=== PATIENT | male | born 1950 | race Caucasian/White ===

== ENCOUNTER 2024-06-17 09:34 | Outpatient (AMB) | payer OTHER, SELFPAY ==
--- NOTE | 2024-06-17 09:47 | A.OFFPC_ITS ---
Vital Signs 06/17/24 09:55 Height 5 ft 8.82 in Weight 194 lb 4 oz BMI 28.8 BP 118/66 Blood Pressure Location Lt brachial Position Sitting Pulse 67 Pulse Source Pulse Oximeter Pulse Oximetry (%) 97 Oxygen Delivery Method Room Air Intake Visit Reasons: Establish Care Intake Note: New patient visit. Pulled left shoulder in February Residential Program Coordinator Required: No Allergies No Known Allergies Allergy (Verified 06/17/24 09:47) Tobacco use date assessed: 06/17/24 Fall risk assessment: No Falls in past year Last assessed Fall Risk: 06/17/24 Dental Screening Dental Screen Date: 06/17/24 Did you have a dental visit in the last 12 months?: Yes Did you have a dental problem in the last 6 months where you did not have access to dental care?: No Was dental information given to patient?: Patient has dentist HPI HPI Comments History of Present Illness Details The patient is a 73 year old male with a past medical history of hyperlipidemia, arthritis, PTSD, presenting for follow up CV: on simvastatin 40mg daily, ASA 81mg daily. Denies chest pain, dizziness, vision changes. Previously was seeing Dr Dickey. Sees Dr Bates for optho. Susceptible to glaucoma Pulled left shoulder picking his up who has mobility issues. Right foot. Chronic throat clearing. Preventive Due for colonoscopy 11/09/2027 ROS CONSTITUTIONAL: Denies weight loss, fever and chills. HEENT: Denies changes in vision and hearing. RESPIRATORY: Denies SOB and cough. CV: Denies palpitations and CP GI: Denies abdominal pain, nausea, vomiting and diarrhea. : Denies dysuria and urinary frequency. MSK: Denies new myalgia and joint pain. SKIN: Denies rash and pruritus. NEUROLOGICAL: Denies headache PSYCHIATRIC: Denies recent changes in mood. PHYSICAL EXAM: GENERAL: Alert and oriented x 3. NAD EYES: EOMI. Anicteric. HENT: Moist mucous membranes. No scleral icterus. No cervical lymphadenopathy. LUNGS: Clear to auscultation bilaterally. CARDIOVASCULAR: Regular rate and rhythm. No murmur. No JVD. ABDOMEN: Soft, non-tender +bs EXTREMITIES: No edema. Non-tender. SKIN: No rashes or lesions. Warm. NEUROLOGIC: No focal neurological deficits. CN II-XII grossly intact PSYCHIATRIC: Cooperative. Appropriate mood and affect COUNTS INCLUDE 234 BEDS AT THE [facility] Medical History (Updated 12/09/24 @ 02:29 by Negin Raygoza MD) Deviated septum Surgical History (Updated 06/17/24 @ 09:59 by Pushpa Long CMA) H/O colonoscopy H/O vasectomy Family History (Updated 06/17/24 @ 10:02 by Pushpa Long CMA) Mother Rectal cancer Father Cancer of colon Diabetes Stroke Maternal Grandmother Diabetes Arthritis CHF (congestive heart failure) Maternal Grandfather Heart attack Other Alcoholism Substance abuse Social History (Updated 06/17/24 @ 10:02 by Pushpa Long CMA) Housing: House Alcohol intake: current Patient Tobacco Use Status: Never used Tobacco e-Cigarette/Vaping Use: Never Used Second Hand Smoke Exposure: No Substance Use Type: Former Substance User and Marijuana service: Yes Current occupational status: retired Cognitive needs: No Hearing needs: No Vision needs: No Questionnaire PHQ-9 Over the last 2 weeks, how often have you been bothered by any of the following problems? 1. Little interest or pleasure in doing things: not at all 2. Feeling down, depressed, or hopeless: not at all 3. Trouble falling or staying asleep, or sleeping too much: not at all 4. Feeling tired or having little energy: not at all 5. Poor appetite or overeating: not at all 6. Feeling bad about yourself - or that you are a failure or have let yourself or your family down: not at all 7. Trouble concentrating on things, such as reading the newspaper or watching television: not at all 8. Moving or speaking so slowly that other people could have noticed. Or the opposite - being so fidgety or restless that you have been moving around a lot more than usual: not at all 9. Thoughts that you would be better off or of hurting yourself in some way: not at all Total score: 0 Depression Screening Interpretation: Negative Depression Screening Done: Yes 27561 - PHQ-9 Billing: Yes Source: Developed by Drs. Charlie Edwards, Elvia Melendrez, Ortega Nunez and colleagues, with an educational troy from [employer]. Thrive Questionnaire Date Thrive assessed: 06/10/24 I am a: Patient What is your living situation today?: I have a steady place to live Within the past 12 months, did the food you bought not last and you didn't have the money to get more?: Never true Within the past 12 months, did you worry whether your food would run out before you got money to buy more?: Never true Do you have trouble paying for medicines?: No Do you have trouble getting transportation to medical appointments?: No Do you have trouble paying your heating and electricity bill?: No Do you have trouble taking care of your child, family member or friend?: No Do you have trouble with day-to-day activities such as bathing, preparing meals, shopping, managing finances, etc.?: No Are you currently unemployed and looking for a job?: No Are you interested in more education?: No Please select the resources that you would like help with: None Currently or been in a relationship where the following occur: No concerns reported THRIVE Score: 0 AUDIT C Alcohol Use Questionnaire (AUDIT-C) 1. How often do you have a drink containing alcohol?: 2-4 times a month 2. How many drinks containing alcohol do you have on a typical day when you are drinking?: 3 or 4 3. How often do you have six or more drinks on one occasion?: Never Total Score: 3 JOSE A-7 AMB Questionnaire JOSE A-7 Date JOSE A - 7 assessed: 06/17/24 Feeling nervous, anxious, or on edge: 0 = Not at all Not being able to stop or control worryin = Not at all Worrying too much about different things: 0 = Not at all Trouble relaxin = Not at all Being so restless that it is hard to sit still: 0 = Not at all Becoming easily annoyed or irritable: 0 = Not at all Feeling afraid as if something awful might happen: 0 = Not at all Total JOSE A-7 score (0-4 normal; 5-9 mild; 10-14 moderate; 15-21 severe): 0 Source: Developed by Drs. Charlie Edwards, Elvia Melendrez, Ortega Nunez and colleagues, with an educational troy from [employer]. JOSE A-7 Assessment Billing JOSE A-7 Assessment Tool: JOSE A-7 Assessment 39070 Physical exam (Primary Care) Vital Signs: Last Vital Signs Pulse 67 06/17/24 09:55 BP 118/66 06/17/24 09:55 Pulse Ox 97 12/02/24 09:55 Oxygen Delivery Method Room Air 06/17/24 09:55 BMI result Body Mass Index 28.8 Tobacco/Smoking Status: Tobacco use Status Tobacco use date assessed 06/17/24 06/17/24 10:03 Patient Tobacco Use Status Never used Tobacco 06/17/24 10:03 e-Cigarette/Vaping Use Never Used 06/17/24 10:03 PHQ-9: PHQ-9 Score PHQ-9: Total score 0 06/17/24 10:15 Depression Screening Interpretation: Negative Thrive Assessment: Date of Thrive Assessment Date Thrive assessed 06/10/24 06/17/24 10:03 Currently or been in a relationship where the following occur: No concerns reported Coding Level of Care Code Est Pt Level 4 (74867) Complex EM visit Add On G2211 Diagnoses Mixed hyperlipidemia E78.2 Hyperlipidemia type: mixed hyperlipidemia Other chest pain R07.89 Chest pain type: other chest pain Additional Codes JOSE A-7 Assessment Billing - JOSE A-7 Assessment Tool: JOSE A-7 Assessment 91888 ([id number]) PHQ-9 - 70809 - PHQ-9 Billing: Yes ([id number]) Assessment & Plan Assessment & Plan (1) Hyperlipidemia: Code(s): E78.5 - Hyperlipidemia, unspecified Category: Medical Qualifiers: Hyperlipidemia type: mixed hyperlipidemia Qualified Code(s): E78.2 - Mixed hyperlipidemia Plan: stable on statin therapy check labs (2) Chest pain: Code(s): R07.9 - Chest pain, unspecified Category: Medical Qualifiers: Chest pain type: other chest pain Qualified Code(s): R07.89 - Other chest pain Plan: Infrequent episodes Non exertional EKG performed Trial omeprazole-also having chronic throat clearing. If chest pain recurs then we will consider further cardiac testing Orders: Orders Complete Blood Count Auto Diff 06/17/24 E78.5 - Hyperlipidemia, unspecified, Z12.5 - Encounter for screening for malignant neoplasm of prostate, Z13.0 - Encounter for screening for diseases of the blood and blood-forming organs and certain disorders involving the immune mechanism Comprehensive Met. Panel 06/17/24 E78.5 - Hyperlipidemia, unspecified, Z12.5 - Encounter for screening for malignant neoplasm of prostate, Z13.0 - Encounter for screening for diseases of the blood and blood-forming organs and certain disorders involving the immune mechanism Lipid Panel 06/17/24 E78.5 - Hyperlipidemia, unspecified, Z12.5 - Encounter for screening for malignant neoplasm of prostate, Z13.0 - Encounter for screening for diseases of the blood and blood-forming organs and certain disorders involving the immune mechanism Prostate Specific Antigen 06/17/24 E78.5 - Hyperlipidemia, unspecified, Z12.5 - Encounter for screening for malignant neoplasm of prostate, Z13.0 - Encounter for screening for diseases of the blood and blood-forming organs and certain disorders involving the immune mechanism AMB EKG-In Office 06/17/24 R07.9 - Chest pain, unspecified Referrals Orthopedics Referral M25.512 - Pain in left shoulder Medications: New simvastatin 40 mg PO BEDTIME 90 tabs 3RF omeprazole 20 mg PO DAILY 30 caps 0RF
[2024-06-17 09:55] VITALS: BP 118/66; PULSE 67; O2SAT 97; BMI 28.8
== END 2024-06-17 10:53 | disposition home or self-care (01) ==
PROVIDERS: PCP Internal Medicine; Visit Provider Internal Medicine
DX: E78.2 Mixed hyperlipidemia (principal); R07.89 Other chest pain

== ENCOUNTER → 2024-06-17 09:34 | Outpatient (BNVA) | payer OTHER, SELFPAY | PROVIDERS: PCP Internal Medicine; Visit Provider Internal Medicine | DX: E78.2 Mixed hyperlipidemia (principal); R07.89 Other chest pain; Z79.82 Long term (current) use of aspirin; Z79.899 Other long term (current) drug therapy | CPT/HCPCS: 96127; 99212 ==

== ENCOUNTER 2024-06-17 11:19 | Outpatient (REF) | payer OTHER, SELFPAY ==
[2024-06-17 14:27] LABS: MANUAL DIFF FLAG NO
[2024-06-17 14:35] LABS: Basophils Percent Auto 0.5 % (0-2); Eosinophils Absolute Auto 0.1 X10*3/uL (0.0-0.4); Eosinophils Percent Auto 1.4 % (0-4); Hematocrit 42.2 % (42.0-52.0); Hemoglobin 14.6 g/dl (14.0-18.0); Imm Gran Abs Auto 0.02 X10*3/uL (0.00-0.03); Imm Gran Pct Auto 0.3 % (0.0-0.4); Lymphocytes Absolute Auto 1.8 X10*3/uL (1.2-4.9); Lymphocytes Percent Auto 27.4 % (20-40); Mean Corpuscular HGB Conc 34.6 g/dl (31.0-36.0); Mean Corpuscular Hemoglobin 32.6 pg (27.0-33.0); Mean Corpuscular Volume 94.2 fL (80.0-98.0); Mean Platelet Volume 11.7 fL (9.4-12.4); Monocytes Absolute Auto 0.6 X10*3/uL (0.1-1.2); Monocytes Percent Auto 9.1 % (2-11); Neutrophils Percent Auto 61.3 % (45-73); Platelet Count 207 X10*3/uL (160-400); Red Blood Count 4.48 X10*6/uL (4.60-5.80); Red Cell Distribution Width 12.7 % (11.0-16.0); White Blood Count 6.6 X10*3/uL (4.8-10.8)
[2024-06-17 15:49] LABS: Alanine Aminotransferase 22 U/L (0-40); Alkaline Phosphatase 64 U/L (39-117); Anion Gap 12 (12-20); Aspartate Amino Transferase 40 U/L (5-37); Bilirubin Total 0.6 mg/dL (0.0-1.0); Blood Urea Nitrogen 13 mg/dL (9-16); Calcium 9.5 mg/dL (8.4-10.2); Carbon Dioxide 25 mmol/L (22-29); Chloride 108 mmol/L (96-108); Cholesterol 177 mg/dL (<200); Estimated Glomerular Filt Rate > 60; Glucose Random 109 mg/dL (60-115); HDL Cholesterol 46 mg/dL (>40); LDL Cholesterol Calculated 100 mg/dL (<100); Potassium 4.4 mmol/L (3.3-5.1); Sodium 141 mmol/L (135-145); Triglycerides 158 mg/dL (<150)
[2024-06-17 16:10] LABS: Prostate Specific Antigen 0.71 ng/mL (<0.05-4.0)
== END 2024-06-17 11:20 | disposition home or self-care (01) ==
LOC: HO.WFDLDS 11:19
PROVIDERS: Visit Provider Internal Medicine
DX: E78.5 Hyperlipidemia, unspecified (principal); Z12.5 Encounter for screening for malignant neoplasm of prostate; Z13.0 Encounter for screening for diseases of the blood and blood-forming organs and certain disorders involving the immune mechanism
CPT/HCPCS: 36415; 80053; 80061; 84153; 85025

== ENCOUNTER 2024-07-23 07:42 | Outpatient (AMB) | payer OTHER, SELFPAY ==
--- NOTE | 2024-07-23 07:52 | MHC.OFFVIS ---
Vital Signs 07/23/24 07:53 Height 5 ft 8.82 in Weight 194 lb 4 oz BMI 28.8 Intake Visit Reasons: Left shoulder pain and weakness Intake Note: Nirmal is a 73 year old male who presents with complaints of progressively worsening left shoulder pain and weakness. The patient describes his pain as sharp and severe in nature. He did injure his left shoulder approximately 6 months ago while lifting his elderly who had fallen to the ground. He denies any weakness or pain prior to that injury. The patient states that when he lifted his he felt ?a pop? in his left shoulder. He has been doing physical therapy exercises which aggravated his pain. He has also tried Tylenol and anti-inflammatory medicines which gave him minimal relief. He has failed the last 6 weeks of conservative treatment which has included physical therapy exercises, topical creams, Tylenol and anti-inflammatory medicines. He denies any numbness or tingling in either of his upper extremities. Deportation Examiner Required: No Allergies No Known Allergies Allergy (Verified 07/23/24 07:53) Medication List - Last Reconciled 07/23/24 by Jarret Kelsey MD antiarthritic combination no.2 (glucosamine-chondroitin) mg PO ascorbate calcium (vitamin C) 500 mg PO DAILY aspirin 81 mg PO DAILY cholecalciferol (vitamin D3) 50 mcg PO DAILY [coqu10 100 .] multivitamin 1 tab PO DAILY omega 1-rnr-icp-fish oil 300-1,000 mg (Fish Oil) 1 cap PO DAILY omeprazole 20 mg PO DAILY simvastatin 40 mg PO BEDTIME [facility] Medical History (Updated 07/23/24 @ 08:28 by Jarret Kelsey MD) Deviated septum Surgical History (Updated 06/17/24 @ 09:59 by Pushpa Long CMA) H/O colonoscopy H/O vasectomy Family History (Updated 06/17/24 @ 10:02 by Pushpa Long CMA) Mother Rectal cancer Father Cancer of colon Diabetes Stroke Maternal Grandmother Diabetes Arthritis CHF (congestive heart failure) Maternal Grandfather Heart attack Other Alcoholism Substance abuse Social History (Updated 06/17/24 @ 10:02 by Pushpa Long CMA) Housing: House Alcohol intake: current Patient Tobacco Use Status: Never used Tobacco e-Cigarette/Vaping Use: Never Used Second Hand Smoke Exposure: No Substance Use Type: Former Substance User and Marijuana service: Yes Current occupational status: retired Cognitive needs: No Hearing needs: No Vision needs: No Physical Exam Vital Signs: BMI result Body Mass Index 28.8 Const Other: Well-nourished well-developed very friendly male awake alert and oriented x3 in no acute distress Extrem Other: Bilateral upper extremity examination shows good capillary refill, no skin lesions noted, normal sensation light touch Left shoulder examination shows decreased active range of motion but almost full passive range of motion when compared to his right shoulder, 4/5 strength with supraspinatus testing, positive impingement signs, no instability Results Reviewed Results Reviewed: X-rays of the patient's left shoulder taken today show severe acromioclavicular joint arthritis, a type 2 acromion, no acute bony abnormalities Assessment & Plan Assessment & Plan (1) Rotator cuff insufficiency of left shoulder: Code(s): M25.312 - Other instability, left shoulder Category: Medical Plan Mr. Cardona presents with progressively worsening left shoulder pain and weakness most likely due to a full-thickness rotator cuff tear. Thus, I will send the patient for an MRI of his left for further evaluation. I will see him back once the MRI is completed to discuss the findings and treatment options. Feel free to call me at any time should questions regarding his orthopedic management arise. Thank you very much for asking me to see this very friendly gentleman. I spent 21 minutes in reviewing the patient's records and imaging studies, seeing the patient and documenting in the medical record. Orders: Orders XR shoulder LT min 2V Today M25.512 - Pain in left shoulder MR shoulder LT wo con Today M25.312 - Other instability, left shoulder Coding Level of Care Code New Pt Level 3 (42863) Complex EM visit Add On G2211 Diagnoses Rotator cuff insufficiency of left shoulder M25.312
[2024-07-23 07:53] VITALS: BMI 28.8
== END 2024-07-23 08:22 | disposition home or self-care (01) ==
PROVIDERS: PCP Internal Medicine; Visit Provider Orthopaedic Surgery
DX: M25.312 Other instability, left shoulder (principal)
CPT/HCPCS: 99203

== ENCOUNTER → 2024-07-23 07:45 | Outpatient (BNV) | payer OTHER, SELFPAY | PROVIDERS: Visit Provider Radiology Diagnostic Radiology | DX: M25.512 Pain in left shoulder (principal) | CPT/HCPCS: 73030 ==

== ENCOUNTER 2024-07-23 09:31 | Outpatient (REF) | payer OTHER, SELFPAY ==
--- NOTE | ~2024-07-23 | XR_ITS ---
EXAMINATION: XR SHOULDER 2 OR MORE VIEWS LEFT HISTORY: M25.512 - Pain in left shoulder COMPARISON: There are no prior studies available for comparison. FINDINGS: Two views of the left shoulder are submitted. Osseous mineralization is normal. There is no fracture or dislocation. The glenohumeral joint is maintained. There is mild narrowing of the AC joint. The soft tissues are unremarkable. XR/XR shoulder LT min 2V IMPRESSION: Mild narrowing of the AC joint. Electronically signed by: Charlie Weiner MD 07/25/2024 12:58 PM EST DILLAN
--- OUTSIDE RECORDS SUMMARY | 2024-07-24 09:36 | XMS_ITS | Continuity of Care Document ---
Author Name [facility] Organization [facility] Care Team Providers Care White Shoe Ragger Name Role Phone [facility] Unavailable Unavailable Immunizations Combined list of available immunizations from the Department of Defense and Veterans Affairs facilities. Immunization Series Date Given Administered By Site Reaction Lot Number CVX Code Drug Production Solderer Status Comments Source INFLUENZA, INJECTABLE, QUADRIVALENT, PRESERVATIVE FREE 2018 150 complet ed Partner: [facility]. Administe red by: [facility] Clinician (NPI=Not Provided) . Partner 4 Lot#: [id number] Mfr: GlaxCubic Telecomit hKline [place] CNTRL WSTRN [facility]
== END 2024-07-23 09:32 | disposition home or self-care (01) ==
LOC: HO.HOSX 09:31
PROVIDERS: Visit Provider Orthopaedic Surgery
DX: M19.012 Primary osteoarthritis, left shoulder (principal); M25.512 Pain in left shoulder; M25.312 Other instability, left shoulder
CPT/HCPCS: 73030; 99202

== ENCOUNTER 2024-08-12 08:32 | Outpatient (REF) | payer OTHER, SELFPAY ==
--- NOTE | ~2024-08-12 | MR_ITS ---
CLINICAL HISTORY: M25.312 - Other instability, left shoulder Exam: MRI of the left shoulder without intravenous contrast. Comparison: Radiographs July 23, 2024. Findings: Extensive tendinopathy of the distal 2 cm of the supraspinatus tendon is identified. There is a full-thickness tear of the distal supraspinatus tendon with a fluid gap measuring 12 mm medial to lateral x 15 mm anterior to posterior. No tendon retraction or muscle atrophy. This tear extends into the anterior fibers of the distal infraspinatus tendon. Teres minor and subscapularis tendons are intact. Moderate to severe glenohumeral joint DJD with joint space narrowing and osteophyte formation. There is degeneration of the superior labrum without a discrete labral tear. The tendon of the long head of the biceps is appropriately positioned within the bicipital groove. Type 2 acromion. Moderate to severe AC joint DJD with juxta-articular edema. Increased fluid within the subacromial/subdeltoid space due to the full-thickness rotator cuff tear. Impression: 1. Full-thickness supraspinatus tendon tear with severe supraspinatus tendinopathy. This tear extends into the anterior fibers of the distal infraspinatus tendon. 2. Glenohumeral joint and AC joint DJD. This document has been electronically signed by: Wood Villa MD on 08/12/2024 17:03:51
--- NOTE | ~2024-08-12 | XR_ITS ---
EXAMINATION: Pre-MRI orbits. CLINICAL INDICATION: Pre-MRI screening. History of metal left cheek. COMPARISON: None. FINDINGS: There is no radiopaque metallic foreign body seen in the orbits or the soft tissues on the visualized images. The paranasal sinuses and mastoid air cells are well-aerated. XR/XR pre mri screening IMPRESSION: No radiopaque foreign body seen in the orbits or on the visualized images. Electronically signed by: Bimal Shine MD 08/12/2024 09:19 AM EST
--- OUTSIDE RECORDS SUMMARY | 2024-08-12 12:45 | XMS_ITS | Continuity of Care Document ---
Author Name [facility] Organization [facility] Care Team Providers Care Real Estate Economist Name Role Phone [facility] Unavailable Unavailable Problems Combined list of problems from Department of Defense and Veterans Affairs facilities. It does not include entries that were removed or entered in error. Problem Status Onset Date Problem Type Date of Resolution Comments Source visit for: services physical care home Inactive Condition see hard copy DoD visit for: ears, nose, and throat exam Inactive Condition DoD routine examination Inactive Condition DoD Immunizations Combined list of available immunizations from the Department of Defense and Veterans Affairs facilities. Immunization Series Date Given Administered By Site Reaction Lot Number CVX Code Drug Spring Crater Status Comments Source INFLUENZA, INJECTABLE, QUADRIVALENT, PRESERVATIVE FREE 2018 150 complet ed Partner: [facility]. Administe red by: [facility] Clinician (NPI=Not Provided) . Partner 4 Lot#: [id number] Mfr: GlaxoSmit hKline [facility] Encounters Combined list of: 1) Encounters from Department of Veterans Affairs facilities going back up to thelast 18 months. 2) Encounters from the Department of Defense facilities going back up to 280 months. Location Location Details Encounter Type Encounter Number Reason For Visit Attending Provider ADM Date DC Date Status Disposition Source [facility] OUTPATIENT [id number] physica jimmy [facility] 02/01 [facility]) OUTPATIENT [id number] CAROLINA OLIVEIRA 02/01 Released w/o Limitations [facility] OUTPATIENT [id number] RET SAMEER CHANDLER 02/01 Released w/o Limitations [facility] OUTPATIENT [id number] retirem ent DAVID CartagenaEEP S 02/14 Released w/o Limitations [facility] Procedures Combined list of: 1) Procedures from Department of Veterans Affairs facilities going back up to thelast 18 months, not all VA non-surgical procedures are included; 2) All procedures from the Department of Defense facilities. Procedure Procedure Type Code Date Perfomer Comments [facility] SCREENING TEST, PURE TONE, AIR ONLY 5 [facility] ACOUSTIC REFLEX TESTING, THRESHOLD 5 [facility] OPHTHALMOLOGICAL SERVICES: MEDICAL EXAMINATION AND EVALUATION, WITH INITIATION OR CONTINUATION OF DIAGNOSTIC AND TREATMENT PROGRAM; INTERMEDIATE, ESTABLISHED PATIENT 5 [facility] Audiogram (Screening) Audiogram (Screening) 43039 5 SAMEER PATEL [facility] Comprehensive Audiometry Comprehensive Audiometry 28896 5 CAROLINA OLIVEIRA [facility] Tympanometry Tympanometry 32857 5 CAROLINA OLIVEIRA [facility] Acoustic Reflex Testing 5 [place] OLIVEIRA [facility] Social History Combined list of available smoking, tobacco, and other social history from Department of Defense and Veterans Affairs facilities. Social History Type Response Date Comment [facility] e This section is an empty social history section. [facility]
== END 2024-08-12 08:33 | disposition home or self-care (01) ==
LOC: HO.MRI 08:32
PROVIDERS: PCP Internal Medicine; Referring Provider Radiology Diagnostic Radiology; Visit Provider Orthopaedic Surgery
DX: M25.512 Pain in left shoulder (principal)
CPT/HCPCS: 73221

== ENCOUNTER → 2024-08-12 09:01 | Outpatient (BNV) | payer OTHER, SELFPAY | PROVIDERS: PCP Internal Medicine; Referring Provider Radiology Diagnostic Radiology; Visit Provider Radiology Diagnostic Radiology | DX: M75.102 Unspecified rotator cuff tear or rupture of left shoulder, not specified as traumatic (principal); M19.012 Primary osteoarthritis, left shoulder | CPT/HCPCS: 73221 ==

== ENCOUNTER 2024-09-11 07:55 | Outpatient (AMB) | payer OTHER, SELFPAY ==
--- OUTSIDE RECORDS SUMMARY | 2024-09-11 07:59 | XMS_ITS | Encounter Summary ---
Author Organization [facility] Address [address] [place] [address] Care Team Providers Care Motion Picture Photographer Name Role Phone Negin Franks MD Primary Care Provider [facility], Pcp Primary Care Provider Negin Hernandez MD Primary Care Provider Peter ruthefrord Encounter Details Date Type Department Care Team Description 11/21/2019 Local Telephone Operator Report Medical Records [address] [place] [address] Zac Gamez Social History Tobacco Use Types Packs/Day Years Used Date Smoking Tobacco: Never Smokeless Tobacco: Never Alcohol Use Standard Drinks/Week Comments Yes 1.7 (1 standard drink = 0.6 oz p ure alcohol) 2 beers per week Physical Activity Answer Date Recorded On average, how many days pe r week do you engage in moderate to strenuous exercise (like walking fast, running, jogging, dancing, swimming, biking, or other activities that cause a light or heavy sweat)? 4 days 04/06/2020 On average, how many minutes do you engage in exercise at this level? 60 min 04/06/2020 Stress Answer Date Recorded Do you feel stress - tense, restless, nervous, or anxious, or unable to sleep at night because your mind is troubled all the time - these days? Only a little 04/06/2020 Intimate Partner Violence Answer Date R ecorded Within the last year, have y ou been afraid of your partner or ex-partner? No 04/06/2020 Within the last year, have y ou been humiliated or emotionally abused in other ways by your partner or ex-partner? No Within the last year, have y ou been kicked, hit, slapped, or otherwise physically hurt by your partner or ex-partner? No 04/06/2020 Within the last year, have y ou been raped or forced to have any kind of sexual activity by your partner or ex-partner? No 04/06/2020 Sex Assigned at Date Recorded Not on file documented as of this encounter Plan of Treatment Not on file documented as of this encounter Visit Diagnoses Not on filedocumented in this encounter Care Teams Motion Picture Photographer Relationship Specialty Start Date End Date Negin Franks MD PCP - General Internal Medicine 05/15/15 10/25/20 [facility] Pcp PCP - General Internal Medicine 10/26/20 04/01/21 Negin Franks MD PCP - General Internal Medicine 04/02/21 documented as of this encounter
--- OUTSIDE RECORDS SUMMARY | 2024-09-11 07:59 | XMS_ITS | Encounter Summary ---
Author Organization [facility] Address [address] [place] [address] Care Team Providers Care Sales Support Coordinator Name Role Phone Yaya Hinds MD Primary Care Provider Negin Juares MD Primary Care Provider Peter rutherford [facility], Pcp Primary Care Provider Negin Hernandez MD Primary Care Provider Unavaila krish Encounter Details Date Type Department Care Team Description 01/02/2014 Pt. Non Urgent Medic al Question Medicine/Pediatrics - [address] [phone] Barbara Brown FNP Social History Tobacco Use Types Packs/Day Years Used Date Smoking Tobacco: Never Smokeless Tobacco: Never Alcohol Use Standard Drinks/Week Comments Yes 5 (1 standard drink = 0.6 oz pur e alcohol) 2-3 beers in a weeks time Physical Activity Answer Date Recorded On average, [...] on file documented as of this encounter Progress Notes * Marla Graf L.P.N. - 01/03/2014 8:47 AM EDTFrom: Nirmal Cardona To: JAVIER Alfaro Sent: 01/02/2014 8:25 PM EDT Subject: Thank-You ... Barbara, Thank-you for the quick response with results for this morning's blood draw... ([employer])!!! Also glad to see that my count has dropped a bit, regarding the Cholesterol test... I had a Sinus infection, which turned to a Head cold, Chest cold, and Pneumonia in September, which lasted into October... I told my that I now know how someone must feel to be on their bed , as I had never been as sick as I was... Unfortunately, I have yet to get back to walking the bike trail, and lifting weights, as I'm catching up with work around the house ... I plan on getting back on track soon, but Dr. Johnson may not be too happy with my weight gain... We'll see?!? Thanks again, Matt documented in this encounter Plan of Treatment Not on file documented as of this encounter Visit Diagnoses Not on filedocumented in this encounter Care Teams Sales Support Coordinator Relationship Specialty Start Date End Date Yaya Hinds MD PCP - General Internal Medicine 08/24/11 05/14/15 Negin Franks MD PCP - General Internal Medicine 05/15/15 10/25/20 [facility], Pcp PCP - General Internal Medicine 10/26/20 04/01/21 Negin Franks MD PCP - General Internal Medicine 04/02/21 documented as of this encounter
--- OUTSIDE RECORDS SUMMARY | 2024-09-11 07:59 | XMS_ITS | Encounter Summary ---
Author Organization [facility] Address [address] [place] [address] Care Team Providers Care Houseman Name Role Phone Negin Franks MD Primary Care Provider Peter rutherford [facility], Pcp Primary Care Provider Mandy Negin Franks MD Primary Care Provider Peter rutherford Encounter Details Date Type Department Care Team Description 04/22/2016 Pt. Non Urgent Medical Question Medicine/Pediatrics - [address] [phone] Negin Franks MD Social History Tobacco Use Types Packs/Day Years [...] as of this encounter Progress Notes * Anne Angeles M.A. - 04/22/2016 2:25 PM EDTFrom: [place] Cardona To: Negin Raygoza MD Sent: 04/22/2016 2:04 PM EDT Subject: Flu / Pneumonia Shot(s) [facility] Team! I was wondering if I could schedule a visit to [facility], in order to receive both theFlu, and Pneumonia shot(s)? I would like to schedule an triage licensed practical nurse visit, (preferably on a , or Monday morning, if possible)... Thank-You ... Matt Cardona, (JOSE Kinney) [address] [place] [phone] documented in this encounter Plan of Treatment Not on file documented as of this encounter Visit Diagnoses Not on filedocumented in this encounter Care Teams Houseman Relationship Specialty Start Date End Date Negin Franks MD PCP - General Internal Medicine 05/15/15 10/25/20 [facility] Pcp PCP - General Internal Medicine 10/26/20 04/01/21 Negin Franks MD PCP - General Internal Medicine 04/02/21 documented as of this encounter
--- OUTSIDE RECORDS SUMMARY | 2024-09-11 07:59 | XMS_ITS | Continuity of Care Document ---
Author Name [facility] Organization [facility] Care Team Providers Care Excellence Leader Name Role Phone [facility] Unavailable Unavailable Problems Combined list of problems from Department of Defense and Veterans Affairs facilities. It does not include entries that were removed or entered in error. Problem Status Onset Date Problem Type Date of Resolution Comments Source visit for: services physical shelter Inactive Condition see hard copy DoD visit for: ears, nose, and throat exam Inactive Condition DoD routine examination Inactive Condition DoD Immunizations Combined list of available immunizations from the Department of Defense and Veterans Affairs facilities. Immunization Series Date Given Administered By Site Reaction Lot Number CVX Code Drug Supervisor Mixing Status Comments Source INFLUENZA, INJECTABLE, QUADRIVALENT, PRESERVATIVE FREE 2018 150 complet ed Partner: [facility]. Administe red by: [facility] Clinician (NPI=Not Provided) . Partner 4 Lot#: [id number] Mfr: GlaxoSmit [employer]line [facility] Encounters Combined list of: 1) Encounters from Department of Veterans Affairs facilities going backup to the last 18 months, not all VA inpatient encounters are included; 2) Encounters from the Department of Defense facilities going backup to 280 months. Location Location Details Encounter Type Encounter Number Reason For Visit Attending Provider ADM Date DC Date Status Disposition Source [facility] OUT[facility] [id number] physica l [facility] 02/01 [facility]) OUTPATIENT [id number] CAROLINA OLIVEIRA 02/01 Released w/o Limitations [facility]) OUTPATIENT [id number] SAMEER JHAVERI PE 02/01 Released w/o Limitations [facility]) OUTPATIENT [id number] retirem ent pe GALECHRISTELLEARNOL NAUN GallowayP S 02/14 Released w/o Limitations [facility] Procedures Combined list of: 1) Procedures from Department of Veterans Affairs facilities going back up to thelast 18 months, not all VA non-surgical procedures are included; 2) All procedures from the Department of Defense facilities. Procedure Procedure Type Code Date Perfomer Comments [facility] SCREENING TEST, PURE TONE, AIR ONLY 5 [facility] ACOUSTIC REFLEX TESTING, THRESHOLD 5 [facility] OPHTHALMOLOGICAL SERVICES: MEDICAL EXAMINATION AND EVALUATION, WITH INITIATION OR CONTINUATION OF DIAGNOSTIC AND TREATMENT PROGRAM; INTERMEDIATE, ESTABLISHED PATIENT 5 [facility] Audiogram (Screening) Audiogram (Screening) 66663 5 SAMEER PATEL [facility] Comprehensive Audiometry Comprehensive Audiometry 35346 5 CAROLINA OLIVEIRA [facility] Tympanometry Tympanometry 05018 5 CAROLINA OLIVEIRA [facility] Acoustic Reflex Testing 5 CAROLINA OLIVEIRA [facility] Social History Combined list of available smoking, tobacco, and other social history from Department of Defense and Veterans Affairs facilities. Social History Type Response Date Comment [facility] e This section is an empty social history section. [facility]
--- OUTSIDE RECORDS SUMMARY | 2024-09-11 07:59 | XMS_ITS | Encounter Summary ---
Author Organization [facility] Address [address] [place] [address] Care Team Providers Care Orthotics Prosthetics Assistant Name Role Phone Negin Franks MD Primary Care Provider Peter rutherford [facility], Pcp Primary Care Provider Negin Hernandez MD Primary Care Provider Peter rutherford Encounter Details Date Type Department Care Team Description 08/26/2020 Pt. Non Urgent Medical Question Medicine/Pediatrics - [address] [phone] Negin Franks MD Social History Tobacco Use [...] Progress Notes * Marla Graf L.P.N. - 08/26/2020 8:41 AM ESTFrom: Nirmal Cardona Jr. To: Negin Franks MD Sent: 08/26/2020 7:29 AM EST Subject: Referral Request for Simvastatin Prescription Renewal Good Morning Dr. Raygoza, I understand how busy you must be, but I wanted again to ask if you could contact someone on your Health Care Team, in order to submit a renewal request for my Simvastatin prescription, as I have about one week's supply of pills left, which I take daily... [facility], ([facility] is where my prescriptions come from via the mail... Thank-You , Matt Cardona [facility] documented in this encounter Plan of Treatment Not on file documented as of this encounter Visit Diagnoses Not on filedocumented in this encounter Care Teams Orthotics Prosthetics Assistant Relationship Specialty Start Date End Date Negin Franks MD PCP - General Internal Medicine 05/15/15 10/25/20 [facility], Pcp PCP - General Internal Medicine 10/26/20 04/01/21 Negin Franks MD PCP - General Internal Medicine 04/02/21 documented as of this encounter
--- OUTSIDE RECORDS SUMMARY | 2024-09-11 07:59 | XMS_ITS | Encounter Summary ---
Author Organization [facility] Address [address] [place] [address] Care Team Providers Care Tester Operator Helper Name Role Phone Yaya Hinds MD Primary Care Provider Negin Juares MD Primary Care Provider Peter rutherford [facility], Pcp Primary Care Provider Negin Hernandez MD Primary Care Provider Unavaila krish Encounter Details Date Type Department Care Team Description 05/30/2012 [facility] Medical Records [address] [place] [id number] Thomas Gutierrez MD Social History Tobacco Use Types Packs/Day [...] on filedocumented in this encounter Care Teams Tester Operator Helper Relationship Specialty Start Date End Date Yaya Hinds MD PCP - General Internal Medicine 08/24/11 05/14/15 Negin Franks MD PCP - General Internal Medicine 05/15/15 10/25/20 [facility] Pcp PCP - General Internal Medicine 10/26/20 04/01/21 Negin Franks MD PCP - General Internal Medicine 04/02/21 documented as of this encounter
--- OUTSIDE RECORDS SUMMARY | 2024-09-11 07:59 | XMS_ITS | Encounter Summary ---
Author Organization [facility] Address [address] [place] [address] Care Team Providers Care Launchman Name Role Phone Negin Franks MD Primary Care Provider Peter rutherford [facility], Pcp Primary Care Provider Negin Hernandez MD Primary Care Provider Peter rutherford Encounter Details Date Type Department Care Team Description 09/11/2020 [facility] Medical Records [address] [place] [address] Abstract, Provider Social History Tobacco Use Types Packs/Day Years [...] on filedocumented in this encounter Care Teams Launchman Relationship Specialty Start Date End Date Negin Franks MD PCP - General Internal Medicine 05/15/15 10/25/20 [facility] Pcp PCP - General Internal Medicine 10/26/20 04/01/21 Negin Franks MD PCP - General Internal Medicine 04/02/21 documented as of this encounter
--- OUTSIDE RECORDS SUMMARY | 2024-09-11 07:59 | XMS_ITS | Encounter Summary ---
Author Organization [facility] Address [address] [place] [address] Care Team Providers Care Community Dietitian Name Role Phone Negin Franks MD Primary Care Provider Peter rutherford [facility], Pcp Primary Care Provider Negin Hernandez MD Primary Care Provider Peter rutherford Encounter Details Date Type Department Care Team Description 10/18/2018 Pt. Non Urgent Medic al Question Medicine/Pediatrics - [address] [phone] Justyna Perez PA-C Social History Tobacco Use Types Packs/Day Years [...] as of this encounter Progress Notes * Velma Greco M.A. - 10/18/2018 4:56 PM EDTFrom: Nirmal Cardona Jr. To: Justyna Perez PA-C Sent: 10/18/2018 4:54 PM EDT Subject: Thank-You ... Ms. Perez, Thank-You for addressing my head/chest cold issue this morning, and for your feedback on my chest x-ray results, taken in Supply... Have begun taking the benzonatate gels, will continue on with the cough syrup as prescribed... Try not to get old, if you can help it !!! :) Matt Cardona [facility] documented in this encounter Plan of Treatment Not on file documented as of this encounter Visit Diagnoses Not on filedocumented in this encounter Care Teams Community Dietitian Relationship Specialty Start Date End Date Negin Franks MD PCP - General Internal Medicine 05/15/15 10/25/20 [facility], Pcp PCP - General Internal Medicine 10/26/20 04/01/21 Negin Franks MD PCP - General Internal Medicine 04/02/21 documented as of this encounter
--- OUTSIDE RECORDS SUMMARY | 2024-09-11 07:59 | XMS_ITS | Encounter Summary ---
Author Organization [facility] Address [address] [place] [address] Care Team Providers Care Artificial Pearl Maker Name Role Phone Negin Franks MD Primary Care Provider Peter rutherford [facility], Pcp Primary Care Provider Mandy Negin Franks MD Primary Care Provider Peter rutherford Encounter Details Date Type Department Care Team Description 11/19/2019 Pt. Non Urgent Medical Question Medicine/Pediatrics - [address] [phone] Negin Franks MD Social History Tobacco Use [...] Progress Notes * Marla Graf L.P.N. - 11/20/2019 8:48 AM EDTFrom: Nirmal Cardona Jr. To: Negin Franks MD Sent: 11/19/2019 5:46 PM EDT Subject: Question ??? Douglas Raygoza, I am scheduled to have blood work , and receive the Shingles Shot , at 11:30 AM, on Monday, 16 December 2019, at [facility], ([facility]), with a follow-up visit for my annual Physical Exam at 9:00 AM, 26 December 2019... With this COVID-19 affecting everythi ng, will I have to re-schedule these medical visits for another date / time??? Currently, I am in good health, and have been staying at home, as mandated by the state... Please let me know if it is ok for me to make these (2) visits to [facility] next month... I hope that all is well with you, and your Health Care Team members... Matt Cardona [facility] documented in this encounter Plan of Treatment Not on file documented as of this encounter Visit Diagnoses Not on filedocumented in this encounter Care Teams Artificial Pearl Maker Relationship Specialty Start Date End Date Negin Franks MD PCP - General Internal Medicine 05/15/15 10/25/20 [facility], Pcp PCP - General Internal Medicine 10/26/20 04/01/21 Negin Franks MD PCP - General Internal Medicine 04/02/21 documented as of this encounter
--- OUTSIDE RECORDS SUMMARY | 2024-09-11 07:59 | XMS_ITS | Clinical Summary ---
Author Organization [facility] Address [address] [place] [address] Care Team Providers Care Order Builder Name Role Phone Negin Franks MD Primary Care Provider Unavaila ble Allergies No known active allergies Medications Medication Sig Dispensed Refills Start Date End Date Status Coenzyme Q10 (COQ10) 100 MG CAPS Take 1 Cap by mouth daily. 30 Cap 0 10/14/2011 Active Cyanocobalamin (VITAMIN B 12) 100 MCG LOZG Take 1,000 mcg by mouth daily. 30 Lozenge 0 10/14/2011 Active Multiple Vitamins-Minerals (SENIOR MULTIVITAMIN PLUS OR) Take 1 capsule by mouth daily. 0 Active aspirin 81 MG tablet Take 81 mg by mouth daily. 0 Active White 3 1000 MG Cap Take 2,000 Caps by mouth daily. 0 Active Cholecalciferol (VITAMIN D3) 2000 UNITS Cap Take by mouth. 0 Active Glucosamine-Chondroit -Vit C-Mn (GLUCOSAMINE 1500 COMPLEX OR) Take by mouth. 0 Active latanoprost (XALATAN) 0.005 % ophthalmic solution place 1 drop into both eyes at bedtime 0 07/02/2019 Active timolol (TIMOPTIC-XR) 0.5 % ophthalmic gel-forming 1 Drop every morning. Both eyes 0 03/06/2020 Active simvastatin (ZOCOR) 40 MG tablet Take 1 Tab by mouth at bedtime. 90 Tab 1 08/24/2020 Active Active Problems Problem Noted Date Exposure to Agent [place] 01/11/2017 History of actinic keratoses 04/12/2016 Overview: Actinic keratosis Palpitations 07/03/2014 Hyperplastic colon polyp - 2 on 02/07/07 01/15/2012 Trigger finger 10/11/2011 Hypercholesteremia 10/11/2011 Abnormal EKG 10/11/2011 PTSD (post-traumatic stress disorder) Overweight 10/11/2011 Immunizations Name Administration Dates Next Due Influenza (> 6 Months) 04/22/2019,04/12/2012 Influenza Flu (PT Reported) 04/04/2014 Influenza vaccine high dose age 65 and over 03/02/2020,03/28/2018,04/11/2017,05/06,04/15/2015 Pneumoccoccal(Adult) Polysac charide PPSV23 01/08/2014 Pneumococcal Conjugate PCV-13 04/29/2015 Shingrix (Patient reported) 06/26/2020 Shingrix (Recombinant zoster vaccine) 03/02/2020 Tdap 10/11/2011 Zostavax 07/01/2009 Family History Relation Name Status Comments Brother Alive 2 healthy x 1 a lcohol Daughter Alive healthy Father (Age 76) colon canc er/diabetes/heart problems/stroke Maternal Grandfather [place] Maternal Grandmother arthrit is,DM, CHF Mother (Age 83) rectal can cer/hearing loss/ Paternal Grandfather Paternal Grandmother [place] Sister Alive 2, ibs Social History Tobacco Use Types Packs/Day Years [...] Assigned at Date Recorded Not on file Last Filed Vital Signs Vital Sign Reading Time Taken Comments Blood Pressure 102/72 04/21/2020 8:06 AM EDT Pulse 68 04/21/2020 8:06 AM EDT Temperature 36.8 ??C (98.3 ??F) 04/06/2020 10:51 AM E DT Respiratory Rate 14 04/06/2020 10:51 AM EDT Oxygen Saturation 96% 03/20/2019 1:46 PM EDT Inhaled Oxygen Concentration - - Weight 87.5 kg (193 lb) 04/21/2020 8:06 AM EDT Height 175.9 cm (5' 9.25 ) 04/06/2020 10:51 AM E DT Body Mass Index 28.3 04/06/2020 10:51 AM EDT Plan of Treatment Health Maintenance Due Date Last Done Comments Covid-19 Vaccine (#1) 04/11/1951 DTAP/TDAP/TD (2 - Td or Tdap) 10/10/2021 10/11/2011 INFLUENZA (#1) 2024 03/02/2020 (Comp leted), 03/02/2020, 04/22/2019, Additional history exists BMI CHECK/ADVISE 07/17/2024 04/06/2020, 02/2020, 07/24/2019, Additional history exists CHOLESTEROL SCREENING 03/02/2025 03/02/2020 , 01/07/2019, 01/05/2018, Additional history exists HEPATITIS C SCREENING Completed 12/27/2012 PNEUMOCOCCAL VACCINE Completed 04/29/2015, 01/09/20 14 SHINGLES VACCINE Completed 06/26/2020, , 03/02/2020 (External Completion), Additional history exists Care Teams Order Builder Relationship Specialty Start Date End Date Negin Franks MD PCP - General Internal Medicine 04/02/21
--- OUTSIDE RECORDS SUMMARY | 2024-09-11 07:59 | XMS_ITS | Encounter Summary ---
Author Organization [facility] Address [address] [place] [address] Care Team Providers Care Bill Of Materials Clerk Name Role Phone Negin Franks MD Primary Care Provider Peter rutherford [facility], Pcp Primary Care Provider Negin Hernandez MD Primary Care Provider Peter rutherford Encounter Details Date Type Department Care Team Description 04/04/2019 Pt. Non Urgent Medic al Question Medicine/Pediatrics - [address] [phone] Carol Ann Beltran PA-C Social History Tobacco Use Types Packs/Day [...] as of this encounter Progress Notes * Lesley Cuadra M.A. - 04/04/2019 12:14 PM EDTFrom: Nirmal Cardona Jr. To: Carol Ann Beltran PA-C Sent: 04/04/2019 12:05 PM EDT Subject: Flu Vaccine Good morning ... I'm feeling much better now after having Pneumonia, and a bad cough going on... I was wondering if I would I be able to come in on Monday morning, to receive a Flu Vaccine injection??? (I just wanted to check with your office first, to make sure there is vaccine available)... Thank-You , Matt Cardona [facility] documented in this encounter Plan of Treatment Not on file documented as of this encounter Visit Diagnoses Not on filedocumented in this encounter Care Teams Bill Of Materials Clerk Relationship Specialty Start Date End Date Negin Franks MD PCP - General Internal Medicine 05/15/15 10/25/20 [facility], Pcp PCP - General Internal Medicine 10/26/20 04/01/21 Negin Franks MD PCP - General Internal Medicine 04/02/21 documented as of this encounter
--- OUTSIDE RECORDS SUMMARY | 2024-09-11 07:59 | XMS_ITS | Encounter Summary ---
Author Organization [facility] Address [address] [place] [address] Care Team Providers Care Loader Machine Name Role Phone Negin Franks MD Primary Care Provider Unavaila ble Counts Include [facility], Pcp Primary Care Provider Unavailabl e Negin Franks MD Primary Care Provider Unavaila ble Reason for Referral * EXTERNAL (Routine) - Authorized/Booked Specialty Diagnoses / Procedures Referred By Contsmooth t Referred To Contact Gastroenterology Diagnoses Colon cancer screening Procedures REFERRAL TO GASTROENTEROLOGY Negin Franks MD [address] [place] [phone] Thomas Gutierrez MD [address] [place] [id number] Referral ID Status Reason Start Date Expiration Date V isits Requested Visits Authorized SEE NOTE Authorized/B ooked 06/05/2017 09/13/2017 1 Encounter Details Date Type Department Care Team Description 06/05/2017 Pt. Non Urgent Medical Question Medicine/Pediatrics - [address] [phone] Negin Franks MD Colon cancer screening (Primary Dx) Social History Tobacco Use Types Packs/Day Years [...] Progress Notes * Marla Graf L.P.N. - 06/05/2017 3:31 PM ESTFrom: Nirmal Cardona Jr. To: Negin Franks MD Sent: 06/05/2017 3:24 PM EST Subject: Colon Screening ([facility])!!! Douglas Raygoza, I received a telephone call this afternoon from Dr. Gutierrez's office, in [place], and the nice young lady informed me that I am due for a Colon Screening exam... (He has performed this procedure twice in the past)... With my family's history, (Father - Colon Cancer, Mother - Rectal Cancer), they want to examine me every 5-years, I believe... Needless to say, she was going to contact your office, for a referral, to have this exam done sometime in July 2017... I just wanted to let you know about this exam they are requesting... (I suppose we can discuss this subject further, when I come in for my follow-up on 13 July 2017... Not looking forward to it; (the procedure), not the Doctor's visit... Happy Thanksgiving to you, and to your Family... Matt Cardona [address] [facility] [id number] documented in this encounter Plan of Treatment Not on file documented as of this encounter Visit Diagnoses Diagnosis Colon cancer screening- Primary Special screening for malignant neoplasms, colon documented in this encounter Care Teams Loader Machine Relationship Specialty Start Date End Date Negin Franks MD PCP - General Internal Medicine 05/15/15 10/25/20 [facility] Pcp PCP - General Internal Medicine 10/26/20 04/01/21 Negin Franks MD PCP - General Internal Medicine 04/02/21 documented as of this encounter
--- OUTSIDE RECORDS SUMMARY | 2024-09-11 07:59 | XMS_ITS | Encounter Summary ---
Author Organization [facility] Address [address] [place] [address] Care Team Providers Care Mental Health Program Manager Name Role Phone Negin Franks MD Primary Care Provider Peter rutherford [facility], Pcp Primary Care Provider Mandy Negin Franks MD Primary Care Provider Peter rutherford Encounter Details Date Type Department Care Team Description 07/01/2016 Pt. Non Urgent Medical Question Medicine/Pediatrics - [address] [phone] Negin Franks MD Social History Tobacco Use [...] as of this encounter Progress Notes * Yareli Flores M.A. - 07/01/2016 11:47 AM ESTFrom: Nirmal Cardona Jr. To: Negin Raygoza MD Sent: 07/01/2016 11:41 AM EST Subject: Question for You ... Good morning Dr. Raygoza, I took time off from work this morning, so that I could have blood drawn, prior to our appointment next Monday morning, 08 July 2016, for 08:45am... I believe that the reason for this appointment was because my health insurance company, ( [employer]), requested that I be seen by you, as my prescription for Simastatin, (40mg), was to run out. (They did ship another 3 months supply to our home, after being told by them, that I needed to contact your office for an appointment, before they would ship any more of these meds to me in the [facility] e)... I scheduled an appointment for this morning, in order to have some blood drawn, prior to our visit next Monday, but when I arrived, the young lady who works in the lab, told me that I could not have blood drawn... She said that my insurance company only allows for (1) blood draw a year, and that I could come back prior to my appointment with you in September 2016, for my annual physical exam... Now, I am a bit confused as to why you would need to see me next Monday morning, if you have no blood results, pertaining to my cholesterol issues?!? I imagine that my health insurance company will still need something from you, in order for me tocontinue receiving my Simastatin meds?!? I scheduled that appointment for a blood draw, based upon an email message from Anne, on 05/09/2016, where she stated that we do request that you are seen every six months ; and to please schedulean appointment... There are labs ordered that you can have done prior to your appointment ... Please let me know what I need to do next??? Thank-You, Matt Cardona [address] [place] [phone] documented in this encounter Plan of Treatment Not on file documented as of this encounter Visit Diagnoses Not on filedocumented in this encounter Care Teams Mental Health Program Manager Relationship Specialty Start Date End Date Negin Franks MD PCP - General Internal Medicine 05/15/15 10/25/20 [facility], Pcp PCP - General Internal Medicine 10/26/20 04/01/21 Negin Franks MD PCP - General Internal Medicine 04/02/21 documented as of this encounter
--- OUTSIDE RECORDS SUMMARY | 2024-09-11 07:59 | XMS_ITS | Encounter Summary ---
Author Organization [facility] Address [address] [place] [address] Care Team Providers Care Clinical Lab Specialist Name Role Phone Negin Franks MD Primary Care Provider Peter rutherford [facility], Pcp Primary Care Provider Mandy Negin Franks MD Primary Care Provider Peter rutherford Encounter Details Date Type Department Care Team Description 01/19/2017 Pt. Non Urgent Medical Question Medicine/Pediatrics - [address] [phone] Negin Franks MD Social History Tobacco Use [...] Progress Notes * Marla Graf L.P.N. - 01/19/2017 3:44 PM EDTFrom: Nirmal Cardona Jr. To: Negin Raygoza MD Sent: 01/19/2017 3:42 PM EDT Subject: Chest X-Ray Results ... Dr. Raygoza, Thank-You for the prompt reply, regarding my X-Ray Test Results taken this morning... I guess that all is well, for this old amando , (for now, anyways).... I will be mailing to your attention my medical record copies verifying my service in [place], [place], and regarding the [facility], Toxic Drinking water issue... I would appreciateit if you could include this information in my files, with the information I provided you recently... I just feel that if you are aware of where I've served, while in the [employer], it will be helpful to me, should someday, down the road, and (God forbid), I do find myself with one of these related illnessess, and need [facility], [facility]... Thanks again, Matt Otoole MA documented in this encounter Plan of Treatment Not on file documented as of this encounter Visit Diagnoses Not on filedocumented in this encounter Care Teams Clinical Lab Specialist Relationship Specialty Start Date End Date Negin Franks MD PCP - General Internal Medicine 05/15/15 10/25/20 [facility], Pcp PCP - General Internal Medicine 10/26/20 04/01/21 Negin Franks MD PCP - General Internal Medicine 04/02/21 documented as of this encounter
--- OUTSIDE RECORDS SUMMARY | 2024-09-11 07:59 | XMS_ITS | Encounter Summary ---
Author Organization [facility] Address [address] [place] [address] Care Team Providers Care Large Animal Veterinarian Name Role Phone Negin Franks MD Primary Care Provider Peter rutherford [facility], Pcp Primary Care Provider Negin Hernandez MD Primary Care Provider Peter rutherford Encounter Details Date Type Department Care Team Description 08/13/2020 Pt. Non Urgent Medical Question Medicine/Pediatrics - [address] [phone] Negin Franks MD Social History Tobacco Use [...] Progress Notes * Marla Graf L.P.N. - 08/14/2020 8:46 AM ESTFrom: Nirmal Cardona Jr. To: Negin Franks MD Sent: 08/13/2020 6:53 PM EST Subject: COVID-[address] Raygoza, Will I be notified from your office when the 1st round of COVID-19 vaccinations arrive in our area,or is it up to us to find it's availability, and locations to receive the vaccine??? I hope that all is well with you, your family, and your Health Care Team dur ing this time!!! Thank-You , Matt Cardona [facility] documented in this encounter Plan of Treatment Not on file documented as of this encounter Visit Diagnoses Not on filedocumented in this encounter Care Teams Large Animal Veterinarian Relationship Specialty Start Date End Date Negin Franks MD PCP - General Internal Medicine 05/15/15 10/25/20 [facility], Pcp PCP - General Internal Medicine 10/26/20 04/01/21 Negin Franks MD PCP - General Internal Medicine 04/02/21 documented as of this encounter
--- OUTSIDE RECORDS SUMMARY | 2024-09-11 07:59 | XMS_ITS | Encounter Summary ---
Author Organization [facility] Address [address] [place] [address] Care Team Providers Care Electronics Technician Apprentice Name Role Phone Negin Franks MD Primary Care Provider Peter rutherford [facility], Pcp Primary Care Provider Mandy Negin Franks MD Primary Care Provider Peter rutherford Encounter Details Date Type Department Care Team Description 06/26/2020 Pt. Non Urgent Medical Question Medicine/Pediatrics - [address] [phone] Negin Franks MD Social History Tobacco Use [...] on filedocumented in this encounter Care Teams Electronics Technician Apprentice Relationship Specialty Start Date End Date Negin Franks MD PCP - General Internal Medicine 05/15/15 10/25/20 [facility], Pcp PCP - General Internal Medicine 10/26/20 04/01/21 Negin Franks MD PCP - General Internal Medicine 04/02/21 documented as of this encounter
--- NOTE | 2024-09-11 08:00 | MHC.OFFVIS ---
Vital Signs 09/11/24 08:02 Height 5 ft 8.8 in Weight 194 lb BMI 28.8 Intake Visit Reasons: OV- Left shoulder MRI review Intake Note: Nirmal is a 73 year old male who presents today for review of his left shoulder MRI. The patient states that his left shoulder discomfort is tolerable to him. He has been doing gentle ifnhk-pe-rhpesu exercises to prevent stiffness. He wishes to avoid surgery if possible. Allergies No Known Allergies Allergy (Verified 09/11/24 08:03) Medication List - Last Reconciled 09/11/24 by Jarret Kelsey MD antiarthritic combination no.2 (glucosamine-chondroitin) mg PO ascorbate calcium (vitamin C) 500 mg PO DAILY aspirin 81 mg PO DAILY cholecalciferol (vitamin D3) 50 mcg PO DAILY [coqu10 100 .] multivitamin 1 tab PO DAILY omega 4-mwt-crr-fish oil 300-1,000 mg (Fish Oil) 1 cap PO DAILY omeprazole 20 mg PO DAILY simvastatin 40 mg PO BEDTIME [facility] Medical History (Updated 07/23/24 @ 08:28 by Jarret Kelsey MD) Deviated septum Surgical History (Updated 06/17/24 @ 09:59 by Pushpa Long CMA) H/O colonoscopy H/O vasectomy Family History (Updated 06/17/24 @ 10:02 by Pushpa Long CMA) Mother Rectal cancer Father Cancer of colon Diabetes Stroke Maternal Grandmother Diabetes Arthritis CHF (congestive heart failure) Maternal Grandfather Heart attack Other Alcoholism Substance abuse Social History (Updated 06/17/24 @ 10:02 by Pushpa Long CMA) Housing: House Alcohol intake: current Patient Tobacco Use Status: Never used Tobacco e-Cigarette/Vaping Use: Never Used Second Hand Smoke Exposure: No Substance Use Type: Former Substance User and Marijuana service: Yes Current occupational status: retired Cognitive needs: No Hearing needs: No Vision needs: No Physical Exam Vital Signs: BMI result Body Mass Index 28.8 Extrem Other: left shoulder examination shows almost full range motion when compared to his right shoulder, 4+ out of 5 strength with supraspinatus testing, minimal discomfort with range of motion Results Reviewed Results Reviewed: MRI of the patient's left shoulder shows severe acromioclavicular joint narrowing, a type 2 acromion, a small supraspinatus tendon tear Assessment & Plan Assessment & Plan (1) Left shoulder pain: Code(s): M25.512 - Pain in left shoulder Category: Medical Plan Mr. Cardona presents with intermittent left shoulder discomfort due to impingement syndrome, acromioclavicular joint arthritis and a small rotator cuff tear. I had a lengthy discussion with the patient regarding the treatment options. At this point the patient's symptoms are tolerable to him. The do's and don'ts of lifting were discussed at length with the patient. He will follow up with me on an as-needed basis should his symptoms worsen in any way. Feel free to call me at any time should questions regarding his orthopedic management arise. I spent 22 minutes in reviewing the patient's records and imaging studies, seeing the patient and documenting in the medical record. Coding Level of Care Code Est Pt Level 3 (03526) Complex EM visit Add On G2211 Diagnoses Left shoulder pain M25.512
[2024-09-11 08:02] VITALS: BMI 28.8
== END 2024-09-11 08:15 | disposition home or self-care (01) ==
PROVIDERS: PCP Internal Medicine; Visit Provider Orthopaedic Surgery
DX: M75.42 Impingement syndrome of left shoulder (principal); M19.012 Primary osteoarthritis, left shoulder
CPT/HCPCS: 99213

== ENCOUNTER → 2024-09-11 07:55 | Outpatient (BNVA) | payer OTHER, SELFPAY | PROVIDERS: PCP Internal Medicine; Visit Provider Orthopaedic Surgery | DX: M75.42 Impingement syndrome of left shoulder (principal); M19.012 Primary osteoarthritis, left shoulder; M75.102 Unspecified rotator cuff tear or rupture of left shoulder, not specified as traumatic | CPT/HCPCS: 99212 ==

== ENCOUNTER 2025-01-20 08:52 | Outpatient (REF) | payer OTHER, SELFPAY ==
--- OUTSIDE RECORDS SUMMARY | 2019-04-21 20:00 | XMS_ITS | Continuity of Care Document ---
Author Name [facility] Organization [facility] Care Team Providers Care Nailer Machine Name Role Phone [facility] Unavailable Unavailable Immunizations Combined list of available immunizations from the Department of Defense and Veterans Affairs facilities. Immunization Series Date Given Administered By Site Reaction Lot Number [id number] Code Drug Steffen House Supervisor Status Comments Source INFLUENZA, INJECTABLE, QUADRIVALENT, PRESERVATIVE FREE 2018 150 complet ed 02, Partner: [facility]. Administe red by: [facility] Clinician (NPI=Not Provided) . Partner 4 Lot#: [id number] Mfr: GlaxoSmit hKline [place] CNTL [facility]N [facility]
--- OUTSIDE RECORDS SUMMARY | 2025-01-20 09:06 | XMS_ITS | Encounter Summary ---
Author Organization [facility] Address [address] [place] [address] Care Team Providers Care Bicycle Mechanic Name Role Phone Negin Franks MD Primary Care Provider Peter rutherford [facility], Pcp Primary Care Provider Negin Hernandez MD Primary Care Provider Peter rutherford Encounter Details Date Type Department Care Team Description 10/18/2018 Pt. Non Urgent Medic al Question Medicine/Pediatrics - [address] [phone] Justyna Perez PA-C Social History Tobacco Use [...] on my chest x-ray results, taken in [place]... Have begun taking the benzonatate gels, will continue on with the cough syrup as prescribed... Try not to get old, if you can help it !!! :) Matt Cardona [facility] documented in this encounter Plan of Treatment Not on file documented as of this encounter Visit Diagnoses Not on filedocumented in this encounter Care Teams Bicycle Mechanic Relationship Specialty Start Date End Date Negin Franks MD PCP - General Internal Medicine 05/15/15 10/25/20 [facility], Pcp PCP - General Internal Medicine 10/26/20 04/01/21 Negin Franks MD PCP - General Internal Medicine 04/02/21 documented as of this encounter
[2025-01-20 11:28] LABS: MANUAL DIFF FLAG NO
[2025-01-20 11:31] LABS: Hematocrit 43.2 % (42.0-52.0); Hemoglobin 14.7 g/dl (14.0-18.0); Imm Gran Abs Auto 0.02 X10*3/uL (0.00-0.03); Imm Gran Pct Auto 0.3 % (0.0-0.4); Lymphocytes Absolute Auto 1.7 X10*3/uL (1.2-4.9); Mean Corpuscular HGB Conc 34.0 g/dl (31.0-36.0); Mean Corpuscular Hemoglobin 32.4 pg (27.0-33.0); Mean Corpuscular Volume 95.2 fL (80.0-98.0); NRBC Abs Auto 0.000 X10*3/uL (0.0-0.012); NRBC Pct Auto 0.0 /100WBC (0.0-0.2); Platelet Count 216 X10*3/uL (160-400); Red Blood Count 4.54 X10*6/uL (4.60-5.80); White Blood Count 6.6 X10*3/uL (4.8-10.8)
[2025-01-20 11:49] LABS: Hemoglobin A1C 144.6596 umol/L; Total Hemoglobin (HGBA1C) 3882.0766 umol/L
[2025-01-20 12:39] LABS: Prostate Specific Antigen 0.77 ng/mL (<0.05-4.0)
[2025-01-20 13:50] LABS: Anion Gap 12 (12-20)
[2025-01-20 13:55] LABS: Alanine Aminotransferase 28 U/L (0-40); Albumin Level 4.1 g/dL (3.5-5.0); Alkaline Phosphatase 64 U/L (39-117); Aspartate Amino Transferase 29 U/L (5-37); Blood Urea Nitrogen 13 mg/dL (9-16); Calcium 8.9 mg/dL (8.4-10.2); Carbon Dioxide 26 mmol/L (22-29); Chloride 108 mmol/L (96-108); Cholesterol 168 mg/dL (<200); Estimated Glomerular Filt Rate > 60; HDL Cholesterol 46 mg/dL (>40); Potassium 4.5 mmol/L (3.3-5.1); Sodium 141 mmol/L (135-145); Total Protein 6.9 g/dL (6.5-8.0); Triglycerides 110 mg/dL (<150)
== END 2025-01-20 08:53 | disposition home or self-care (01) ==
LOC: HO.WFDLDS 08:52
PROVIDERS: Visit Provider Internal Medicine
DX: E78.2 Mixed hyperlipidemia (principal); Z13.0 Encounter for screening for diseases of the blood and blood-forming organs and certain disorders involving the immune mechanism; Z12.5 Encounter for screening for malignant neoplasm of prostate; Z13.228 Encounter for screening for other metabolic disorders; Z13.1 Encounter for screening for diabetes mellitus
CPT/HCPCS: 36415; 80053; 80061; 83036; 84153; 84443; 85025

== ENCOUNTER 2025-02-03 11:02 | Outpatient (AMB) | payer OTHER, SELFPAY ==
--- NOTE | 2025-02-03 11:15 | AM.OFFVISMDC ---
Intake Vital Signs 02/03/25 11:26 Height 5 ft 8.8 in Weight 195 lb 8 oz BMI 29.0 BP 130/70 Blood Pressure Location Rt brachial Position Sitting Respiration 14 Pulse 69 Pulse Source Pulse Oximeter Temp 98.5 F Temp Source Oral Pulse Oximetry (%) 96 Oxygen Delivery Method Room Air Intake Visit Reasons: mawv Intake Note: Medical annual wellness Web Search Evaluator Required: No Allergies No Known Allergies Allergy (Verified 02/03/25 11:17) HPI HPI Comments History of Present Illness Details The patient is a 74 year old male with a past medical history of hyperlipidemia, arthritis, PTSD, presenting for physical exam CV: on simvastatin 40mg daily, ASA 81mg daily. Denies chest pain, dizziness, vision changes. Previously was seeing Dr Dickey who retired Sees Dr Bates for optho. Susceptible to glaucoma MSK: Pulled left shoulder picking his up. He was seen at [facility] by Dr Kelsey. Declines surgical intervention unless worsens. bilateral foot pain Preventive Due for colonoscopy 11/09/2027 Tdap 08/2023 Dental UTD ROS see HPI PHYSICAL EXAM: GENERAL: Alert and oriented x 3. NAD EYES: EOMI. Anicteric. HENT: Moist mucous membranes. No scleral icterus. No cervical lymphadenopathy. LUNGS: Clear to auscultation bilaterally. CARDIOVASCULAR: Regular rate and rhythm. No murmur. No JVD. ABDOMEN: Soft, non-tender +bs EXTREMITIES: No edema. Non-tender. SKIN: No rashes or lesions. Warm. NEUROLOGIC: No focal neurological deficits. CN II-XII grossly intact PSYCHIATRIC: Cooperative. Appropriate mood and affect [facility] Medical History Deviated septum Surgical History H/O colonoscopy H/O vasectomy Family History Mother Rectal cancer Father Cancer of colon Diabetes Stroke Maternal Grandmother Diabetes Arthritis CHF (congestive heart failure) Maternal Grandfather Heart attack Other Alcoholism Substance abuse Social History Housing: House Alcohol intake: current Patient Tobacco Use Status: Never used Tobacco e-Cigarette/Vaping Use: Never Used Second Hand Smoke Exposure: No Substance Use Type: Former Substance User and Marijuana service: Yes Current occupational status: retired Cognitive needs: No Hearing needs: No Vision needs: No Questionnaire Medicare Wellness Checkup [age] What gender do you identify with?: male During the past 4 weeks, how much have you been bothered by emotional problems such as feeling anxious, depressed, irritable, sad or downhearted, and blue?: not at all During the past 4 weeks, has your physical & emotional health limited your social activities with family, friends, neighbors, or groups?: not at all During the past 4 weeks, how much bodily pain have you generally had?: moderate pain During the past 4 weeks, was someone available to help you if you needed & wanted help?: yes, as much as I wanted During the past 4 weeks, what was the hardest physical activity you could do for at least 2 minutes?: moderate Can you get to places out of walking distance without help? (For eg., can you travel alone on buses, taxis or drive your car?): Yes Can you go shopping for groceries or clothes without someone's help?: Yes Can you prepare your own meals?: Yes Can you do your housework without help?: Yes Because of any health problems, do you need the help of another person with your personal care needs such as eating, bathing, dressing or getting around the house?: No Can you handle your own money without help?: Yes During the past 4 weeks, how would you rate your health in general?: very good During the past 4 weeks how have things been going for you?: pretty well Are you having difficulties driving your car?: no Do you always fasten your seat belt when you are in a car?: yes, usually During past 4 weeks, have you been bothered by the following: never: Falling or dizzy when standing up, Sexual problems?, Trouble eating well?, Teeth or denture problems? and Problems using the telephone? and seldom: Tiredness or fatigue? (working around the yard) Have you fallen 2 or more times in the past year?: No Are you afraid of falling?: No Are you a smoker?: no During the past 4 weeks, how many drinks of wine, beer, or other alcoholic beverages did you have?: 2-5 drinks per week Do you exercise for about 20 minutes 3 or more times a week?: yes, all the time Have you been given information to help with the following?: no: Hazards in your house that might hurt you? and no: Keeping track of your medications? How often do you have trouble taking medicines the way you have been told to take them?: I always take medicine as prescribed How confident are you that you can control & manage most of your health problems?: very confident What is your race?: White Mini Mental State Exam (MMSE) Orientation What is the (year) (season) (date) (day) (month)?: year (2024), season (summer), date (02/03/2025), day and month Where are we (state) (county) (town or city) (hospital) (floor)?: state ([place]), county ([place]), town or city ([place]), hospital/clinic ([facility] ) and floor (first) Registration Name of 3 unrelated objects clearly and slowly, then ask patient to repeat all 3 of them. (1st repeat determines score. Make sure they can repeat all three): object 1 (Ball), object 2 (flag) and object 3 (tree) Attention & Calculation (CHOOSE ONE) Ask pt to begin with 100 & count backward by 7. Stop after 5 repeats. If pt cannot ask them to spell the word WORLD backward.: 93 Spell WORLD backwards (DLROW): 4 letters Recall Ask patient to repeat the 3 items from question #3.: object 1 (tree) and object 2 (tree) Language Show patient a wristwatch & ask what it is. Repeat for pencil.: watch and pencil Ask the patient to repeat the phrase 'No ifs, ands, or buts' after you.: correct Ask the patient to 'take a piece of paper with their right hand' 'fold paper in half' 'place paper on floor': take paper in right hand Print the sentence 'CLOSE YOUR EYES' on a piece. If patient actually closes eyes then score.: followed written direction Give patient a blank piece of paper & ask to write a sentence. Score if it contains a noun & verb.: sentence contains subject and verb Ask patient to copy figure of intersecting pentagons exactly. Score if all 10 angles & 2 intersects are included.: all 10 angles present & 2 are intersected Score Score: 27 Activity of Daily Living Bathing - sponge bath, tub bath or shower: receives no assistance (gets in/out by self, if usual bathing means Dressing - getting clothes from closets & drawers, including inner/outer garments & fasteners.: gets clothes & gets completely dressed without help Toileting - going to the 'toilet room' for urine/bowel elimination & cleaning self/arranging clothes: goes to toilet room, cleans self, arranges clothes without help Transfer: moves in & out of bed and chair without help (may use support object) Continence: controls urination/bowel movements completely by self Feeding: feeds self without help Total Score: 0 Information obtained from: patient Using telephone: independent Traveling: independent Shopping: independent Preparing meals: independent Housework: independent Taking medicine: independent Managing money: independent Physical Exam Vital Signs: Last Vital Signs Temp 98.5 F 02/03/25 11:26 Pulse 69 02/03/25 11:26 Resp 14 02/03/25 11:26 BP 130/70 02/03/25 11:26 Pulse Ox 96 02/03/25 11:26 Oxygen Delivery Method Room Air 02/03/25 11:26 BMI result Body Mass Index 29.0 Assessment & Plan Assessment & Plan (1) Physical exam: Code(s): Z00.00 - Encounter for general adult medical examination without abnormal findings (2) Left shoulder pain: Code(s): M25.512 - Pain in left shoulder Qualifiers: Chronicity: chronic Qualified Code(s): M25.512 - Pain in left shoulder; G89.29 - Other chronic pain (3) Hyperlipidemia: Code(s): E78.5 - Hyperlipidemia, unspecified Qualifiers: Hyperlipidemia type: mixed hyperlipidemia Qualified Code(s): E78.2 - Mixed hyperlipidemia Plan 74 year old for wellness visit Interval history reviewed HLD stable on statin therapy Chronic throat clearing -declines ENT referral Foot pain-voltaren ordered Medications: New diclofenac sodium 1% (Voltaren Arthritis Pain) apply to single knee, ankle, foot; for foot includes sole/toes/top of foot 4 grams topical QID 50 grams 3RF Discontinued omeprazole Discontinued Reason: Doctor's Order 20 mg PO DAILY 30 caps 0RF Coding Level of Care Code Medicare Subsequent (G0439) Diagnoses Physical exam Z00.00 Chronic left shoulder pain M25.512; G89.29 Chronicity: chronic Mixed hyperlipidemia E78.2 Hyperlipidemia type: mixed hyperlipidemia
[2025-02-03 11:26] VITALS: BP 130/70; PULSE 69; RESP 14; TEMP 36.9; O2SAT 96; BMI 29.0
--- OUTSIDE RECORDS SUMMARY | 2025-02-03 12:12 | XMS_ITS | Continuity of Care Document ---
Author Name [facility] Organization [facility] Care Team Providers Care Green Building Materials Distributor Name Role Phone [facility] Unavailable Unavailable Problems Combined list of problems from Department of Defense and Veterans Affairs facilities. It does not include entries that were removed or entered in error. Problem Status Onset Date Problem Type Date of Resolution Comments Source visit for: services physical shelter Inactive Condition see hard copy DoD visit for: ears, nose, and throat exam Inactive Condition DoD NORMAL EXAMINATION Inactive Condition DoD Immunizations Combined list of available immunizations from the Department of Defense and Veterans Affairs facilities. Immunization Series Date Given Administered By Site Reaction Lot Number CVX Code Drug Oss Architect Status Comments Source INFLUENZA, INJECTABLE, QUADRIVALENT, PRESERVATIVE FREE 2018 150 complet ed 02, Partner: [facility]. Administe red by: [facility] Clinician (NPI=Not Provided) . Partner 4 Lot#: [id number] Mfr: Oxyrane UKit hKline [facility] Encounters Combined list of: 1) Encounters from Department of Veterans Affairs facilities going backup to the last 18 months, not all [place] inpatient encounters are included; 2) Encounters from the Department of Defense facilities going backup to 280 months. Location Location Details Encounter Type Encounter Number Reason For Visit Attending Provider ADM Date DC Date Status Disposition Source [facility]ly [facility] OUTPATIENT [id number] physica l AHLTA SYSTEM ADMINISTRA TOR 02/01 Formerly [facility]( [facility]) OUTPATIENT [id number] CAROLINA OLIVEIRA 02/01 Released w/o Limitations Formerly [facility]( [facility]) Formerly [facility]( [facility]) OUTPATIENT [id number] SAMEER JHAVERI PE 02/01 Released w/o Limitations Formerly [facility]( [facility] OUTPATIENT [id number] retirem ent pe GALECHRISTELLEARNOL NAUN [place] S 02/14 Released w/o Limitations [facility]) Procedures Combined list of: 1) Procedures from Department of Veterans Affairs facilities going back up to thelast 18 months, not all [place] non-surgical procedures are included; 2) All procedures from the Department of Defense facilities. Procedure Procedure Type Code Date Perfomer Comments [facility] e Audiogram (Screening) Audiogram (Screening) 16359 5 SAMEER PATEL [facility] Comprehensive Audiometry Comprehensive Audiometry 45861 5 CAROLINA OLIVEIRA [facility] Tympanometry Tympanometry 00128 5 [place] OLIVEIRA [facility] Acoustic Reflex Testing 5 [place] OLIVEIRA [facility] SCREENING TEST, PURE TONE, AIR ONLY 5 [facility] ACOUSTIC REFLEX TESTING, THRESHOLD 5 [facility] OPHTHALMOLOGICAL SERVICES: MEDICAL EXAMINATION AND EVALUATION, WITH INITIATION OR CONTINUATION OF DIAGNOSTIC AND TREATMENT PROGRAM; INTERMEDIATE, ESTABLISHED PATIENT 5 [facility] Social History Combined list of available smoking, tobacco, and other social history from Department of Defense and Veterans Affairs facilities. Social History Type Response Date Comment [facility] e This section is an empty social history section. [facility]
--- OUTSIDE RECORDS SUMMARY | 2025-02-03 12:13 | XMS_ITS | Encounter Summary ---
Author Organization [facility] Address [address] [place] [id number] Phone Care Team Providers Care Manufacturing Executive Name Role Phone Negin Raygoza MD Primary Care Provider Negin Raygoza MD Unavailable [phone] Zac Gamez MD Unavailable [phone] Negin Raygoza MD Unavailable [phone] Encounter Details Date Type Department Care Team (Late st Contact Info) Description 11/08/2017 Procedure Pass [facility] Endoscopy Admitting Dept Virtual Department [address] [place] [id number] Social History Tobacco Use Types Packs/Day Years Used Date Smoking Tobacco: Never Smokeless Tobacco: Never Sex and Gender Information Value Date Recorded Sex Assigned at Not on file Legal Sex Male 5:21 PM EST Gender Identity Not on file Sexual Orientation Not on file documented as of this encounter Plan of Treatment Not on file documented as of this encounter Visit Diagnoses Not on filedocumented in this encounter Care Teams Manufacturing Executive Relationship Specialty Start Date End Date Negin Raygoza MD PCP - General 05/04/17 Negin Raygoza MD 05/04/17 Zac Gamez MD [email or web address] Historical LMR Provider 05/04/17 Negin Raygoza MD [address] [place] [address] [place] [id number] Historical LMR Provider 05/04/17 2 documented as of this encounter Additional Source Comments The information contained in this document represents components of the legal health record. It is not the complete legal health record.[facility]
== END 2025-02-03 13:51 | disposition home or self-care (01) ==
LOC: HO.HMCFM 11:04
PROVIDERS: PCP Internal Medicine; Visit Provider Internal Medicine
DX: Z00.00 Encounter for general adult medical examination without abnormal findings (principal); M25.512 Pain in left shoulder; G89.29 Other chronic pain; E78.2 Mixed hyperlipidemia